=== PATIENT | female | born 1955 | race Caucasian/White ===

== ENCOUNTER 2019-07-05 11:26 | Emergency (ER) | payer MEDICARE ==
[~2019-07-05] VITALS: Ht 177.8 cm; Wt 118.8 kg
--- NOTE | 2019-07-05 12:25 | NUR ---
PT RA SAT 88%, 2L NC PLACED IN TRIAGE WITH EFFECT. SP02 92-93% ON 2L NC. PT IN WHEELCHAIR AND TO LOBBY
[2019-07-05 12:47] LABS: MEAN CORPUSCULAR HEMOGLOBIN 31.9 pg (27.0-34.8); MEAN CORPUSCULAR HGB CONC 33.2 g/dL (32.4-35.8); MEAN CORPUSCULAR VOLUME 96.3 fL (80-100); MEAN PLATELET VOLUME 7.8 fL (7.4-10.4); PLATELET COUNT 302 x10^3/uL (130-400); RED BLOOD COUNT 4.69 x10^6/uL (3.82-5.3); RED CELL DISTRIBUTION WIDTH 12.6 % (9.6-15.2)
[2019-07-05 12:54] LABS: ALANINE AMINOTRANSFERASE 39 U/L (12-78); ALBUMIN 3.2 g/dL (3.4-5.0); ANION GAP 10 mmol/L (5-15); CALCIUM 8.5 mg/dL (8.5-10.1); CHLORIDE 100 mmol/L (98-107); CREATININE 0.75 mg/dL (0.55-1.02)
[2019-07-05 12:56] LABS: ALKALINE PHOSPHATASE 82 U/L (45-117); BILIRUBIN,TOTAL 1.2 mg/dL (0.2-1.0); TOTAL PROTEIN 7.5 g/dL (6.4-8.2)
[2019-07-05 13:21] LABS: BASOPHILS # (AUTO) 0.04 x10^3/uL (0-0.1); BASOPHILS % (AUTO) 0 % (0-1); EOSINOPHILS # (AUTO) 0.05 x10^3/uL (0-0.4); EOSINOPHILS % (AUTO) 1 % (1-7); LYMPHOCYTES # (AUTO) 1.53 x10^3/uL (1-3.4); LYMPHOCYTES % (AUTO) 15 % (22-44); MD SCAN; MONOCYTES # (AUTO) 1.45 x10^3/uL (0.2-0.8); MONOCYTES % (AUTO) 15 % (2-9); NEUTROPHILS # (AUTO) 6.88 x10^3/uL (1.8-6.8); NEUTROPHILS % (AUTO) 69 % (42-75)
[2019-07-05 15:38] LABS: RAPID INFLUENZA A Negative (Negative); RAPID INFLUENZA B Negative (Negative)
[2019-07-05] MEDS ORDERED: AZITHROMYCIN 250 MG TABLET ONE (15:38)
--- NOTE | 2019-07-05 15:50 | NUR ---
TO ROOM FROM RADIOLOGY/LOBBY. NAD.
[2019-07-05] MEDS ORDERED: ALBUTEROL SULFATE 2.5 MG/3 ML NPPB ONE (16:00)
[2019-07-05] MEDS ORDERED: AZITHROMYCIN 500 MG TABLET PO/NG ONE (16:00)
[2019-07-05 16:38] VITALS: BP 144/58
--- NOTE | 2019-07-05 16:38 | NUR ---
PATIENT AMBULATED TO THE BATHROOM WITH A STEADY GAIT. 85% WHEN RETURNED TO ROOM.
--- NOTE | 2019-07-05 16:42 | NUR ---
RESPIRATORY IN ROOM
--- NOTE | 2019-07-05 16:50 | NUR ---
UPDATED ON PATIENTS ROOM AIR SAT.
--- NOTE | 2019-07-05 17:04 | NUR ---
Patient given discharge instructions and they have confirmed that they understand the instructions. Patient ambulatory with steady gait.
== END 2019-07-05 17:05 | disposition home or self-care (01) ==
LOC: ED 16:59
DX: J18.9 Pneumonia, unspecified organism (principal); Z87.891 Personal history of nicotine dependence
CPT/HCPCS: 36415; 71046; 80053; 83605; 85025; 87040; 87400; 94640; 99284; J7512

== ENCOUNTER 2020-01-07 04:22 | Emergency (ER) | payer MEDICARE ==
[~2020-01-07] VITALS: Ht 177.8 cm; Wt 118.8 kg
[2020-01-07] MEDS ORDERED: ONDANSETRON 2MG/ML, 2ML ONE (04:53)
[2020-01-07] MEDS ORDERED: MORPHINE SULFATE 4 MG/ML, 1ML ONE (04:57)
[2020-01-07] MEDS ORDERED: ONDANSETRON 2MG/ML, 2ML IVPush ONE (05:00)
[2020-01-07] MEDS ORDERED: SODIUM CHLORIDE FLUSH 10ML SYR IVF ONE (05:00)
[2020-01-07] MEDS ORDERED: MORPHINE SULFATE 4 MG/ML, 1ML IVPush PRN (05:00)
--- NOTE | 2020-01-07 05:04 | NUR ---
C/O UPPER ABDOMINAL PAIN SINCE 2 AM. DESCRIBED CONSTANT. + N/V., PAIN RADIATES TO RUQ AND BACK. PIV PLACED AND PT MEDICATED FOR PAIN AND NAUSEA PER EMAR. PT DRY HEAVING AND IN SOME DISTRESS UPON ASSESSMENT.
[2020-01-07 05:47] LABS: BASOPHILS # (AUTO) 0.04 x10^3/uL (0-0.1); BASOPHILS % (AUTO) 1 % (0-1); EOSINOPHILS # (AUTO) 0.02 x10^3/uL (0-0.4); EOSINOPHILS % (AUTO) 0 % (1-7); LYMPHOCYTES # (AUTO) 1.25 x10^3/uL (1-3.4); LYMPHOCYTES % (AUTO) 16 % (22-44); MD NO; MEAN CORPUSCULAR HEMOGLOBIN 31.4 pg (27.0-34.8); MEAN CORPUSCULAR HGB CONC 33.4 g/dL (32.4-35.8); MEAN CORPUSCULAR VOLUME 94.1 fL (80-100); MEAN PLATELET VOLUME 8.8 fL (7.4-10.4); MONOCYTES # (AUTO) 0.37 x10^3/uL (0.2-0.8); MONOCYTES % (AUTO) 5 % (2-9); NEUTROPHILS # (AUTO) 6.34 x10^3/uL (1.8-6.8); NEUTROPHILS % (AUTO) 79 % (42-75); PLATELET COUNT 200 x10^3/uL (130-400); RED BLOOD COUNT 4.57 x10^6/uL (3.82-5.3)
[2020-01-07 05:48] LABS: ALANINE AMINOTRANSFERASE 45 U/L (12-78); ALBUMIN 3.8 g/dL (3.4-5.0); ANION GAP 8 mmol/L (5-15); CALCIUM 8.6 mg/dL (8.5-10.1); CHLORIDE 106 mmol/L (98-107)
[2020-01-07 05:50] LABS: ALKALINE PHOSPHATASE 79 U/L (45-117); TOTAL PROTEIN 7.3 g/dL (6.4-8.2)
--- NOTE | 2020-01-07 06:07 | NUR ---
PT O2 SATS IN THE 80'S. 2 L NC PLACED TO KEEP O2 >90%
[2020-01-07 06:25] LABS: MICROSCOPIC INDICATED
--- NOTE | 2020-01-07 06:51 | NUR ---
REPORT RECEIVED FROM FREDERIC COBB.
[2020-01-07 07:01] VITALS: BP 143/66
[2020-01-07 07:12] LABS: TROPONIN I < 0.015 ng/mL (0.000-0.045)
--- NOTE | 2020-01-07 07:47 | NUR ---
Patient given discharge instructions and they have confirmed that they understand the instructions. Patient ambulatory with steady gait.
== END 2020-01-07 07:48 | disposition home or self-care (01) ==
LOC: ED 06:31
DX: K80.70 Calculus of gallbladder and bile duct without cholecystitis without obstruction (principal); R94.31 Abnormal electrocardiogram [ECG] [EKG]; I10 Essential (primary) hypertension; E78.00 Pure hypercholesterolemia, unspecified
CPT/HCPCS: 36415; 71045; 76700; 80053; 81001; 83690; 84484; 85025; 93005; 96374; 96375; 99285; J2270; J2405

== ENCOUNTER → 2020-06-07 | Outpatient (CLI) | payer MEDICARE | END | disposition home or self-care (01) | LOC: CVU 08:31 | PROVIDERS: ATTEND Internal Medicine Cardiovascular Disease | DX: Z01.810 Encounter for preprocedural cardiovascular examination (principal); I34.8 Other nonrheumatic mitral valve disorders; I11.9 Hypertensive heart disease without heart failure | CPT/HCPCS: 93306 ==